=== PATIENT | male | born 1995 | race Caucasian/White ===

== ENCOUNTER 2025-06-08 14:52 | Emergency (ER) | payer OTHER, BC ==
[2025-06-08] MEDS ORDERED: ACETAMINOPHEN 325 MG TAB PO ONE (15:10)
== END 2025-06-08 18:30 | disposition short-term general hospital (02) ==
LOC: ED 14:52
DX: S32.010A Wedge compression fracture of first lumbar vertebra, initial encounter for closed fracture (principal); S92.352A Displaced fracture of fifth metatarsal bone, left foot, initial encounter for closed fracture; S00.01XA Abrasion of scalp, initial encounter; V89.2XXA Person injured in unspecified motor-vehicle accident, traffic, initial encounter; Y93.89 Activity, other specified; Y92.410 Unspecified street and highway as the place of occurrence of the external cause; Y99.8 Other external cause status